=== PATIENT | female | born 1950 | race Caucasian/White ===

== ENCOUNTER 2019-01-19 10:10 | Emergency (ER) | payer MEDICARE ==
[~2019-01-19] VITALS: Ht 152.4 cm; Wt 102.1 kg
[~2019-01-19 10:10] MED LIST: AMLODIPINE-BEN1 EAC1 PO; ATORVASTATIN CA40 MG PO; CELEBREX200 MG PO; METFORMIN HCL500 MG PO; NEXIUM40 MG PO; PAROXETINE HCL10 MG PO
[2019-01-19] MEDS ORDERED: HYDROCODONE/APAP 5MG-325MG TAB PO ONE (11:00)
--- NOTE | 2019-01-19 11:46 | NUR ---
PATIENT BROUGHT TO ROOM #3
--- NOTE | 2019-01-19 12:05 | Diagnostic Imaging Report ---
EXAMINATION: CHEST SINGLE (NOT PORTABLE) INDICATION: Status post fall. COMPARISON: None FINDINGS: TUBES and LINES: None. LUNGS: Lungs are moderately inflated. Mild patchy bibasilar opacities, likely atelectasis. There is no evidence of pneumonia or pulmonary edema. PLEURA: No pleural effusion or pneumothorax. HEART AND MEDIASTINUM: The cardiomediastinal silhouette is unremarkable. Atherosclerotic calcification of the aortic arch. BONES AND SOFT TISSUES: Partially seen minimally displaced fracture of the right proximal humerus. UPPER ABDOMEN: No free air under the diaphragm. IMPRESSION: No acute intrathoracic abnormality Partially seen minimally displaced right proximal humeral fracture. Please refer to the dedicated shoulder radiographs for further details. Signed by: Dr. Miguel Medeiros MD on 01/19/2019 12:01 PM
--- NOTE | 2019-01-19 12:10 | Diagnostic Imaging Report ---
Right shoulder radiographs-2 views; right humerus radiographs-3 views HISTORY: Status post fall COMPARISON: None FINDINGS: There is a mildly displaced, impacted, comminuted fracture of the right humeral surgical neck possibly extending into the head medially. No definite intra-articular extension. Tiny hyperdensity at the greater tuberosity may reflect avulsion fracture or rotator cuff tendinopathy. Glenohumeral alignment is preserved. There are moderate right acromioclavicular and mild right glenohumeral joint degenerative changes. IMPRESSION: Mildly displaced, comminuted fracture of the right proximal humerus without definite intra-articular extension. Tiny hyperdensity at the greater tuberosity may reflect avulsion fracture or rotator cuff tendinopathy. Signed by: Dr. Miguel Medeiros MD on 01/19/2019 12:06 PM
[2019-01-19] MEDS ORDERED: TYLENOL WITH C1 EACH PO (12:54)
--- NOTE | 2019-01-19 13:03 | NUR ---
PATIENT PLACED IN RIGHT SHOULDER IMMOBILIZER, WRAPPED WITH STEPHEN WRAP BANDAGE. [facility] [place] AT BEDSIDE UPDATING PATIENT ON RESULTS RADIOLOGY CALLED FOR DISC
== END 2019-01-19 13:19 | disposition home or self-care (01) ==
LOC: ER 10:10
DX: S42.291A Other displaced fracture of upper end of right humerus, initial encounter for closed fracture (principal); S40.011A Contusion of right shoulder, initial encounter; S40.021A Contusion of right upper arm, initial encounter; W01.0XXA Fall on same level from slipping, tripping and stumbling without subsequent striking against object, initial encounter; Y92.218 Other school as the place of occurrence of the external cause; I10 Essential (primary) hypertension; E11.9 Type 2 diabetes mellitus without complications; E78.5 Hyperlipidemia, unspecified; E66.9 Obesity, unspecified
CPT/HCPCS: 71045; 99283

== ENCOUNTER → 2020-03-26 | Day surgery (SDC) | payer MEDICARE, OTHER ==
[2020-03-21 13:48] LABS: BASOPHILS # (AUTO) 0.1 (0.0-0.1); BASOPHILS % 0.6 % (0.0-1.0); EOSINOPHILS # (AUTO) 0.3 (0.0-0.4); EOSINOPHILS % 2.7 % (0.0-6.0); HEMATOCRIT 42.5 % (34.2-44.1); HEMOGLOBIN 13.6 g/dL (12.0-16.0); LYMPHOCYTES # (AUTO) 2.7 (1.0-3.2); MEAN CORPUSCULAR HEMOGLOBIN 27.6 pg (28-32); MEAN CORPUSCULAR VOLUME 86.2 fL (81-99); MONOCYTES # (AUTO) 0.9 (0.2-0.8); MONOCYTES % 7.2 % (4.4-11.3); NEUTROPHILS # (AUTO) 8.3 (2.1-6.9); NEUTROPHILS % 66.9 % (38.7-80.0); PLATELET COUNT 273 x10e3/uL (140-360); RED BLOOD COUNT 4.93 x10e6/uL (3.6-5.1); RED CELL DISTRIBUTION WIDTH 15.1 % (11.7-14.4)
[~2020-03-26] MED LIST changes: +TRULICITY1.5 MG/0.5 SQ; +TYLENOL WITH C1 EACH PO
[2020-03-26 11:20] VITALS: BP 115/63
--- NOTE | 2020-03-26 11:31 | Operative Report ---
DATE OF PROCEDURE: SURGEON: Vick Rush MD NAME OF THE PROCEDURE: Colonoscopy. PREPROCEDURE DIAGNOSIS: The patient with history of adenomatous colon polyps, here for surveillance colonoscopy. DESCRIPTION OF PROCEDURE: After informed written consent, premedications with monitored anesthesia care, standard adult video Olympus colonoscope was introduced into the rectum and all the way into the terminal ileum. The terminal ileum, cecum, appendiceal orifice appeared to be normal. Ascending transverse colon was normal. The descending sigmoid colon showed extensive diverticulosis. There was a 7 mm polyp seen in the area of the splenic flexure, which was removed with a cold snare. Small internal hemorrhoids were also noted. IMPRESSION: Internal hemorrhoids, colon polyp, diverticulosis. RECOMMENDATIONS: Check the results of pathology. Repeat colonoscopy in 3 years. The patient has been advised to call the office in 3 weeks for Tele appointment to discuss the findings. Vick Rush MD SR/MODL /[id number]
== END | disposition home or self-care (01) ==
LOC: OR 07:49
PROVIDERS: ATTEND Internal Medicine Gastroenterology
DX: Z09 Encounter for follow-up examination after completed treatment for conditions other than malignant neoplasm (principal); K63.5 Polyp of colon; K57.30 Diverticulosis of large intestine without perforation or abscess without bleeding; K64.8 Other hemorrhoids; K21.9 Gastro-esophageal reflux disease without esophagitis; Z71.3 Dietary counseling and surveillance; G47.33 Obstructive sleep apnea (adult) (pediatric); E66.01 Morbid (severe) obesity due to excess calories; E11.9 Type 2 diabetes mellitus without complications; I10 Essential (primary) hypertension; E78.00 Pure hypercholesterolemia, unspecified; Z01.810 Encounter for preprocedural cardiovascular examination; Z01.812 Encounter for preprocedural laboratory examination; Z11.59 Encounter for screening for other viral diseases; Z79.84 Long term (current) use of oral hypoglycemic drugs; Z68.42 Body mass index [BMI] 45.0-49.9, adult
CPT/HCPCS: 36415; 45378; 45385; 82948; 85025; 87635; 93005